=== PATIENT | male | born 1970 | race Caucasian/White ===

== ENCOUNTER → 2018-06-11 | Outpatient (CLI) | payer OTHER ==
[2018-06-11 15:30] LABS: BASOPHILS ABSOLUTE AUTO 0.04 K/mm3 (0.00-0.23); BASOPHILS PERCENT AUTO 0 % (0-2); EOSINOPHILS ABSOLUTE AUTO 0.18 K/mm3 (0.00-0.68); EOSINOPHILS PERCENT AUTO 2 % (0-6); Hematocrit 49.6 % (37.0-53.0); Hemoglobin 16.6 g/dL (13.5-17.5); IMMATURE GRAN ABSOLUTE AUTO 0.04 K/mm3 (0.00-0.10); IMMATURE GRAN PERCENT AUTO 0 % (0-1); LYMPHOCYTES ABSOLUTE AUTO 2.25 K/mm3 (0.84-5.20); LYMPHOCYTES PERCENT AUTO 23 % (21-46); MONOCYTES ABSOLUTE AUTO 0.84 K/mm3 (0.16-1.47); MONOCYTES PERCENT AUTO 9 % (4-13); Mean Corpuscular HGB 31.7 pg (26.0-34.0); Mean Corpuscular HGB Conc 33.5 g/dL (31.5-36.5); Mean Corpuscular Volume 95 fL (80-100); Mean Platelet Volume 9.4 fL (9.1-12.4); NEUTROPHILS ABSOLUTE AUTO 6.58 K/mm3 (1.96-9.15); NEUTROPHILS PERCENT AUTO 66 % (41-73); Platelet Count 319 K/mm3 (150-400); RDW Coefficient Variation 14.7 % (11.7-14.2); RDW Standard Deviation 50.6 fL (35.1-46.3); Red Blood Cell Count 5.24 M/mm3 (4.30-5.90); White Blood Cell Count 9.93 K/mm3 (4.00-11.30)
== END | disposition home or self-care (01) ==
LOC: LAB SHORT 15:23 → LAB EV 15:23
PROVIDERS: Physician Assistant Surgical
DX: M25.562 Pain in left knee (principal)
CPT/HCPCS: 84550; 85025

== ENCOUNTER 2018-08-15 18:25 | Emergency (ER) | payer OTHER ==
[~2018-08-15] VITALS: Ht 177.8 cm; Wt 104.3 kg
== END 2018-08-15 20:07 | disposition home or self-care (01) ==
LOC: ER 18:25
DX: S01.111A Laceration without foreign body of right eyelid and periocular area, initial encounter (principal); W22.8XXA Striking against or struck by other objects, initial encounter; F17.210 Nicotine dependence, cigarettes, uncomplicated
CPT/HCPCS: 12002; 90471; 90714; 99282-25

== ENCOUNTER 2019-06-24 18:14 | Inpatient (IN) | payer OTHER ==
[~2019-06-24] VITALS: Ht 177.8 cm; Wt 98.0 kg
[~2019-06-24 18:14] MED LIST: HYDR1TAB94 PO; ONDA4ODT SL
[2019-06-24 18:58] LABS: BASOPHILS ABSOLUTE AUTO 0.04 K/mm3 (0.00-0.23); BASOPHILS PERCENT AUTO 0 % (0-2); EOSINOPHILS ABSOLUTE AUTO 0.04 K/mm3 (0.00-0.68); EOSINOPHILS PERCENT AUTO 0 % (0-6); Hematocrit 49.6 % (37.0-53.0); Hemoglobin 16.6 g/dL (13.5-17.5); IMMATURE GRAN ABSOLUTE AUTO 0.07 K/mm3 (0.00-0.10); IMMATURE GRAN PERCENT AUTO 1 % (0-1); LYMPHOCYTES ABSOLUTE AUTO 1.51 K/mm3 (0.84-5.20); LYMPHOCYTES PERCENT AUTO 14 % (21-46); MONOCYTES ABSOLUTE AUTO 1.11 K/mm3 (0.16-1.47); MONOCYTES PERCENT AUTO 10 % (4-13); Mean Corpuscular HGB 31.5 pg (26.0-34.0); Mean Corpuscular HGB Conc 33.5 g/dL (31.5-36.5); Mean Corpuscular Volume 94 fL (80-100); Mean Platelet Volume 8.7 fL (9.1-12.4); NEUTROPHILS ABSOLUTE AUTO 8.08 K/mm3 (1.96-9.15); NEUTROPHILS PERCENT AUTO 75 % (41-73); Platelet Count 537 K/mm3 (150-400); Red Blood Cell Count 5.27 M/mm3 (4.30-5.90); White Blood Cell Count 10.85 K/mm3 (4.00-11.30)
[2019-06-24 19:30] LABS: Alanine Aminotransfer (ALT/SGP 26 U/L (12-78); Albumin/Globulin Ratio 0.6 (0.8-1.8); Alk Phos 103 U/L (50-136); Anion Gap 7 mmol/L (6-16); Aspartate Aminotrans (AST/SGOT 23 U/L (12-37); Bilirubin, Total 0.6 mg/dL (0.1-1.0); Blood Urea Nitrogen 8 mg/dL (8-24); Bun/Creatinine Ratio 12.3 (12.0-20.0); CO2, Blood 23 mmol/L (21-32); Calcium, Blood 8.8 mg/dL (8.5-10.1); Chloride, Blood 101 mmol/L (98-108); Creatinine, Blood 0.65 mg/dL (0.60-1.20); Globulin, Blood 4.7 g/dL (2.2-4.0); Glomerular Filtration Rate >60 (60-); Glucose, Blood 115 mg/dL (70-99); Potassium, Blood 3.9 mmol/L (3.5-5.5); Sodium, Blood 131 mmol/L (136-145); Total Protein, Blood 7.7 g/dL (6.4-8.2)
[2019-06-24] MEDS ORDERED: METF500 PO (19:44)
[2019-06-25 05:01] LABS: BASOPHILS ABSOLUTE AUTO 0.03 K/mm3 (0.00-0.23); BASOPHILS PERCENT AUTO 0 % (0-2); EOSINOPHILS ABSOLUTE AUTO 0.08 K/mm3 (0.00-0.68); EOSINOPHILS PERCENT AUTO 1 % (0-6); Hematocrit 47.9 % (37.0-53.0); Hemoglobin 15.6 g/dL (13.5-17.5); IMMATURE GRAN ABSOLUTE AUTO 0.04 K/mm3 (0.00-0.10); IMMATURE GRAN PERCENT AUTO 1 % (0-1); LYMPHOCYTES ABSOLUTE AUTO 1.49 K/mm3 (0.84-5.20); LYMPHOCYTES PERCENT AUTO 18 % (21-46); MONOCYTES ABSOLUTE AUTO 1.09 K/mm3 (0.16-1.47); MONOCYTES PERCENT AUTO 13 % (4-13); Mean Corpuscular HGB 30.8 pg (26.0-34.0); Mean Corpuscular HGB Conc 32.6 g/dL (31.5-36.5); Mean Corpuscular Volume 95 fL (80-100); Mean Platelet Volume 8.7 fL (9.1-12.4); NEUTROPHILS ABSOLUTE AUTO 5.78 K/mm3 (1.96-9.15); NEUTROPHILS PERCENT AUTO 68 % (41-73); Platelet Count 495 K/mm3 (150-400); RDW Coefficient Variation 13.2 % (11.7-14.2); Red Blood Cell Count 5.06 M/mm3 (4.30-5.90); White Blood Cell Count 8.51 K/mm3 (4.00-11.30)
[2019-06-26 04:40] LABS: BASOPHILS ABSOLUTE AUTO 0.04 K/mm3 (0.00-0.23); BASOPHILS PERCENT AUTO 1 % (0-2); EOSINOPHILS ABSOLUTE AUTO 0.15 K/mm3 (0.00-0.68); EOSINOPHILS PERCENT AUTO 2 % (0-6); Hematocrit 44.1 % (37.0-53.0); Hemoglobin 14.5 g/dL (13.5-17.5); IMMATURE GRAN ABSOLUTE AUTO 0.03 K/mm3 (0.00-0.10); IMMATURE GRAN PERCENT AUTO 0 % (0-1); LYMPHOCYTES ABSOLUTE AUTO 1.28 K/mm3 (0.84-5.20); LYMPHOCYTES PERCENT AUTO 16 % (21-46); MONOCYTES PERCENT AUTO 10 % (4-13); Mean Corpuscular HGB 31.4 pg (26.0-34.0); Mean Corpuscular HGB Conc 32.9 g/dL (31.5-36.5); Mean Corpuscular Volume 96 fL (80-100); Mean Platelet Volume 8.5 fL (9.1-12.4); NEUTROPHILS ABSOLUTE AUTO 5.54 K/mm3 (1.96-9.15); NEUTROPHILS PERCENT AUTO 71 % (41-73); Platelet Count 415 K/mm3 (150-400); RDW Coefficient Variation 13.1 % (11.7-14.2); RDW Standard Deviation 46.2 fL (35.1-46.3); Red Blood Cell Count 4.62 M/mm3 (4.30-5.90); White Blood Cell Count 7.84 K/mm3 (4.00-11.30)
[2019-06-26 04:56] LABS: Albumin, Blood 2.3 g/dL (3.4-5.0); Anion Gap 5 mmol/L (6-16); Blood Urea Nitrogen 4 mg/dL (8-24); Bun/Creatinine Ratio 6.6 (12.0-20.0); CO2, Blood 25 mmol/L (21-32); Calcium, Blood 7.8 mg/dL (8.5-10.1); Chloride, Blood 107 mmol/L (98-108); Creatinine, Blood 0.61 mg/dL (0.60-1.20); Glomerular Filtration Rate >60 (60-); Glucose, Blood 105 mg/dL (70-99); Phosphorus, Blood 2.6 mg/dL (2.5-4.9); Potassium, Blood 3.8 mmol/L (3.5-5.5); Sodium, Blood 137 mmol/L (136-145)
[2019-06-27 04:52] LABS: BASOPHILS ABSOLUTE AUTO 0.05 K/mm3 (0.00-0.23); BASOPHILS PERCENT AUTO 1 % (0-2); EOSINOPHILS ABSOLUTE AUTO 0.15 K/mm3 (0.00-0.68); EOSINOPHILS PERCENT AUTO 2 % (0-6); Hematocrit 46.6 % (37.0-53.0); Hemoglobin 15.1 g/dL (13.5-17.5); IMMATURE GRAN ABSOLUTE AUTO 0.05 K/mm3 (0.00-0.10); IMMATURE GRAN PERCENT AUTO 1 % (0-1); LYMPHOCYTES ABSOLUTE AUTO 1.94 K/mm3 (0.84-5.20); LYMPHOCYTES PERCENT AUTO 20 % (21-46); MONOCYTES ABSOLUTE AUTO 0.79 K/mm3 (0.16-1.47); MONOCYTES PERCENT AUTO 8 % (4-13); Mean Corpuscular HGB 31.1 pg (26.0-34.0); Mean Corpuscular HGB Conc 32.4 g/dL (31.5-36.5); Mean Corpuscular Volume 96 fL (80-100); Mean Platelet Volume 8.6 fL (9.1-12.4); NEUTROPHILS ABSOLUTE AUTO 6.99 K/mm3 (1.96-9.15); NEUTROPHILS PERCENT AUTO 70 % (41-73); Platelet Count 490 K/mm3 (150-400); RDW Coefficient Variation 12.9 % (11.7-14.2); RDW Standard Deviation 45.9 fL (35.1-46.3); Red Blood Cell Count 4.86 M/mm3 (4.30-5.90); White Blood Cell Count 9.97 K/mm3 (4.00-11.30)
[2019-06-27 05:16] LABS: Albumin, Blood 2.6 g/dL (3.4-5.0); Anion Gap 6 mmol/L (6-16); Blood Urea Nitrogen 3 mg/dL (8-24); Bun/Creatinine Ratio 4.4 (12.0-20.0); CO2, Blood 28 mmol/L (21-32); Calcium, Blood 8.7 mg/dL (8.5-10.1); Chloride, Blood 102 mmol/L (98-108); Creatinine, Blood 0.68 mg/dL (0.60-1.20); Glomerular Filtration Rate >60 (60-); Glucose, Blood 93 mg/dL (70-99); Phosphorus, Blood 3.1 mg/dL (2.5-4.9); Potassium, Blood 3.8 mmol/L (3.5-5.5); Sodium, Blood 136 mmol/L (136-145)
[2019-06-27] MEDS ORDERED: ACET325 PO (14:20)
[2019-06-27] MEDS ORDERED: CIPR750 PO (14:21)
[2019-06-27] MEDS ORDERED: NICO21TP TOP (14:21)
[2019-06-27] MEDS ORDERED: METR500 PO (14:21)
[2019-06-27] MEDS ORDERED: Florastor250 MG PO (14:21)
== END 2019-06-27 14:32 | disposition home or self-care (01) | DRG 392 ==
LOC: ER 18:14 → MEDS 21:48
PROVIDERS: Family Medicine; Nurse Practitioner; ADMIT Internal Medicine
DX: K52.9 Noninfective gastroenteritis and colitis, unspecified (principal); E87.1 Hypo-osmolality and hyponatremia; K63.0 Abscess of intestine; K56.7 Ileus, unspecified; K21.9 Gastro-esophageal reflux disease without esophagitis; E11.9 Type 2 diabetes mellitus without complications; F17.210 Nicotine dependence, cigarettes, uncomplicated; Z79.84 Long term (current) use of oral hypoglycemic drugs; D47.3 Essential (hemorrhagic) thrombocythemia; K76.0 Fatty (change of) liver, not elsewhere classified; E66.01 Morbid (severe) obesity due to excess calories; Z68.31 Body mass index [BMI] 31.0-31.9, adult
CPT/HCPCS: 36415; 74177; 80053; 80069; 82947; 83690; 85025; 96361; 96365-59; 99285-25; A9270-GY; J0744; J1170; J2405; J7030; J7042; Q9967

== ENCOUNTER 2019-07-09 15:41 | Day surgery (SDC) | payer OTHER ==
[~2019-07-09 15:41] MED LIST changes: +ACET325 PO; +CIPR750 PO; +Florastor250 MG PO; +METF500 PO; +METR500 PO; +NICO21TP TOP
[2019-07-09] MEDS ORDERED: PHILLIPS500 MG PO (17:10)
[2019-07-09] MEDS ORDERED: ERTAPENEM1 GM IV (17:11)
== END 2019-07-09 17:38 | disposition home or self-care (01) ==
LOC: ATC 15:41
DX: K57.92 Diverticulitis of intestine, part unspecified, without perforation or abscess without bleeding (principal); F17.210 Nicotine dependence, cigarettes, uncomplicated; Z88.6 Allergy status to analgesic agent; Z88.0 Allergy status to penicillin; E11.9 Type 2 diabetes mellitus without complications; Z79.84 Long term (current) use of oral hypoglycemic drugs; E78.5 Hyperlipidemia, unspecified; E66.01 Morbid (severe) obesity due to excess calories; Z68.29 Body mass index [BMI] 29.0-29.9, adult
CPT/HCPCS: J1335

== ENCOUNTER 2019-07-10 00:10 | Day surgery (SDC) | payer OTHER ==
[~2019-07-10 00:10] MED LIST changes: +ERTAPENEM1 GM IV; +PHILLIPS500 MG PO
== END 2019-07-10 14:21 | disposition home or self-care (01) ==
LOC: ATC 00:10
DX: K57.92 Diverticulitis of intestine, part unspecified, without perforation or abscess without bleeding (principal); E11.9 Type 2 diabetes mellitus without complications; K21.9 Gastro-esophageal reflux disease without esophagitis; Z79.82 Long term (current) use of aspirin; Z79.899 Other long term (current) drug therapy; Z88.0 Allergy status to penicillin; F17.210 Nicotine dependence, cigarettes, uncomplicated; Z79.84 Long term (current) use of oral hypoglycemic drugs
CPT/HCPCS: J1335

== ENCOUNTER 2019-07-12 00:08 | Day surgery (SDC) | payer OTHER | END 2019-07-12 15:45 | disposition home or self-care (01) | LOC: ATC 00:08 | DX: K57.92 Diverticulitis of intestine, part unspecified, without perforation or abscess without bleeding (principal); E11.9 Type 2 diabetes mellitus without complications; F17.210 Nicotine dependence, cigarettes, uncomplicated; Z88.0 Allergy status to penicillin; Z79.84 Long term (current) use of oral hypoglycemic drugs; Z90.49 Acquired absence of other specified parts of digestive tract | CPT/HCPCS: J1335 ==

== ENCOUNTER 2019-07-15 00:02 | Day surgery (SDC) | payer OTHER | END 2019-07-15 15:16 | disposition home or self-care (01) | LOC: ATC 00:02 | DX: K57.92 Diverticulitis of intestine, part unspecified, without perforation or abscess without bleeding (principal); E11.9 Type 2 diabetes mellitus without complications; K21.9 Gastro-esophageal reflux disease without esophagitis; Z79.84 Long term (current) use of oral hypoglycemic drugs; Z79.899 Other long term (current) drug therapy; Z88.0 Allergy status to penicillin; F17.210 Nicotine dependence, cigarettes, uncomplicated | CPT/HCPCS: 96374; J1335 ==

== ENCOUNTER 2019-07-19 00:20 | Day surgery (SDC) | payer OTHER | END 2019-07-19 15:19 | disposition home or self-care (01) | LOC: ATC 00:20 | DX: K57.92 Diverticulitis of intestine, part unspecified, without perforation or abscess without bleeding (principal); E11.9 Type 2 diabetes mellitus without complications; K21.9 Gastro-esophageal reflux disease without esophagitis; F17.210 Nicotine dependence, cigarettes, uncomplicated; Z88.0 Allergy status to penicillin; Z88.6 Allergy status to analgesic agent; Z79.84 Long term (current) use of oral hypoglycemic drugs; Z79.899 Other long term (current) drug therapy | CPT/HCPCS: J1335 ==

== ENCOUNTER 2019-07-21 00:07 | Day surgery (SDC) | payer OTHER | END 2019-07-21 15:25 | disposition home or self-care (01) | LOC: ATC 00:07 | DX: K57.20 Diverticulitis of large intestine with perforation and abscess without bleeding (principal); E11.9 Type 2 diabetes mellitus without complications; F17.210 Nicotine dependence, cigarettes, uncomplicated; Z79.84 Long term (current) use of oral hypoglycemic drugs | CPT/HCPCS: 96365; J1335 ==

== ENCOUNTER 2019-07-22 00:10 | Day surgery (SDC) | payer OTHER | END 2019-07-22 15:32 | disposition home or self-care (01) | LOC: ATC 00:10 | DX: K57.20 Diverticulitis of large intestine with perforation and abscess without bleeding (principal); E11.9 Type 2 diabetes mellitus without complications; Z79.84 Long term (current) use of oral hypoglycemic drugs; Z88.0 Allergy status to penicillin | CPT/HCPCS: 82565; 96365; J1335 ==

== ENCOUNTER 2019-08-04 06:50 | Inpatient (IN) | payer OTHER ==
[~2019-08-04] VITALS: Ht 177.8 cm; Wt 91.5 kg
[~2019-08-04 06:50] MED LIST changes: +[UNRECOGNIZED DRUG - OTHER] PO
[2019-08-04] MEDS ORDERED: CIPR500 PO (07:30)
[2019-08-04] MEDS ORDERED: METR500 PO (07:30)
--- NOTE | 2019-08-04 07:44 | NUR ---
PT ADMITTED TO [facility]. AGREES WITH PLANNED SURGERY. LUNG SOUNDS CLEAR.
[2019-08-04 08:07] LABS: BASOPHILS ABSOLUTE AUTO 0.05 K/mm3 (0.00-0.23); BASOPHILS PERCENT AUTO 0 % (0-2); EOSINOPHILS ABSOLUTE AUTO 0.14 K/mm3 (0.00-0.68); EOSINOPHILS PERCENT AUTO 1 % (0-6); Hematocrit 45.7 % (37.0-53.0); Hemoglobin 15.5 g/dL (13.5-17.5); IMMATURE GRAN ABSOLUTE AUTO 0.05 K/mm3 (0.00-0.10); IMMATURE GRAN PERCENT AUTO 0 % (0-1); LYMPHOCYTES ABSOLUTE AUTO 2.14 K/mm3 (0.84-5.20); LYMPHOCYTES PERCENT AUTO 19 % (21-46); MONOCYTES ABSOLUTE AUTO 1.08 K/mm3 (0.16-1.47); MONOCYTES PERCENT AUTO 10 % (4-13); Mean Corpuscular HGB 31.4 pg (26.0-34.0); Mean Corpuscular HGB Conc 33.9 g/dL (31.5-36.5); Mean Corpuscular Volume 93 fL (80-100); Mean Platelet Volume 8.9 fL (9.1-12.4); NEUTROPHILS ABSOLUTE AUTO 7.66 K/mm3 (1.96-9.15); NEUTROPHILS PERCENT AUTO 69 % (41-73); Platelet Count 415 K/mm3 (150-400); RDW Coefficient Variation 14.4 % (11.7-14.2); RDW Standard Deviation 48.2 fL (35.1-46.3); Red Blood Cell Count 4.94 M/mm3 (4.30-5.90); White Blood Cell Count 11.12 K/mm3 (4.00-11.30)
--- NOTE | 2019-08-04 08:43 | NUR ---
UP TO BATHROOM AT THIS TIME
--- NOTE | 2019-08-04 19:52 | NUR ---
POST OP: REPORT RECIEVED FROM TONA GERMANU RN. PT TO UNIT AT ABOUT 1640. UPON ASSESSMENT PT VSS, A/O. EPIDURAL ASSESSMENT WNL, SEE CHARTING. SMALL AMT BROWN LIQ STOOL IN OSTOMY BAG. BAG EMPTIED. SITE OOZING OF BLOOD AT SURGICAL SITE, REINFORCED WITH GUAZE. NGT HOOKED TO LIS, SMALL AMT OF OUTPUT, PT DENIES N/V. GLORIA DRAINING. PT REPORTS EPIDURAL MANAGING PAIN WELL, PAIN IS 0/10. WILL CTM PT STATUS. NO ACUTE CHANGE SINCE RECEIVED PT POST OP. REPORT GIVEN TO CHANDLER VICK RN
--- NOTE | 2019-08-04 22:36 | NUR ---
PT STS ABLE TO MOVE R LEG, ABLE TO WIGGLE BILATERAL FEET, UNABLE TO MOVE LEFT LEG, BILATERAL LOWER EXT ARE NUMB.
--- NOTE | 2019-08-04 23:07 | NUR ---
PT REP 0/10 W/EPIDURAL. DRESSING WNL, SMALL AREA OF DRY SS DRNG NOTED ON PAD BEHIND PT'S BACK (UNCHANGED PER DAY RN). LEVEL OF SENSATION T9-L4, PT REP NUMBNESS TO BLE, W/MORE NUMBNESS TO LLE. PT WIGGLES TOES, CAN LIFT RLE, IS UNABLE TO LIFT LLE. RESP E/U, SATS >90% ON RA.
--- NOTE | 2019-08-05 02:08 | NUR ---
PATIENT HAS FULL SENSATION ON RIGHT SIDE BODY DOWN TO RIGHT TOE, ABLE TO MOVE RIGHT LEG. PATIENT FEELS NUMB ON LEFT SIDE (UMBILICUS/MID ABD TO LEFT TOE) T10-L4. UNABLE TO MOVE LEFT LEG. ABLE TO WIGGLE AND MOVE LEFT FOOT, BUT WEAK.
--- NOTE | 2019-08-05 03:04 | NUR ---
RIGHT SIDE NOT NUMB, T10-L4 LEFT SIDE IS STILL NUMB. NO CHANGES IN AN HOUR.
--- NOTE | 2019-08-05 04:05 | NUR ---
PATIENT IS ASLEEP WHEN I CAME INTO HIS ROOM. THEN WIDE AWAKE WHEN VS WAS TAKEN. T10-L3 LEFT SIDE STILL NUMB. HE STATES THAT HE CAN FEEL SENSATION ON LEFT FOOT, ABLE TO MOVE LEFT LOWER LEG. PATIENT STILL HAS FULL SENSATION ON RIGHT SIDE BODY.
[2019-08-05 04:37] LABS: BASOPHILS ABSOLUTE AUTO 0.03 K/mm3 (0.00-0.23); BASOPHILS PERCENT AUTO 0 % (0-2); EOSINOPHILS ABSOLUTE AUTO 0.07 K/mm3 (0.00-0.68); EOSINOPHILS PERCENT AUTO 1 % (0-6); Hematocrit 42.9 % (37.0-53.0); Hemoglobin 14.1 g/dL (13.5-17.5); IMMATURE GRAN ABSOLUTE AUTO 0.07 K/mm3 (0.00-0.10); IMMATURE GRAN PERCENT AUTO 1 % (0-1); LYMPHOCYTES ABSOLUTE AUTO 1.71 K/mm3 (0.84-5.20); LYMPHOCYTES PERCENT AUTO 12 % (21-46); MONOCYTES ABSOLUTE AUTO 1.11 K/mm3 (0.16-1.47); MONOCYTES PERCENT AUTO 8 % (4-13); Mean Corpuscular HGB 30.9 pg (26.0-34.0); Mean Corpuscular HGB Conc 32.9 g/dL (31.5-36.5); Mean Corpuscular Volume 94 fL (80-100); Mean Platelet Volume 9.3 fL (9.1-12.4); NEUTROPHILS PERCENT AUTO 80 % (41-73); Platelet Count 375 K/mm3 (150-400); RDW Coefficient Variation 14.6 % (11.7-14.2); RDW Standard Deviation 50.2 fL (35.1-46.3); Red Blood Cell Count 4.56 M/mm3 (4.30-5.90); White Blood Cell Count 14.69 K/mm3 (4.00-11.30)
[2019-08-05 04:54] LABS: Anion Gap 7 mmol/L (6-16); Blood Urea Nitrogen 6 mg/dL (8-24); Bun/Creatinine Ratio 9.9 (12.0-20.0); CO2, Blood 24 mmol/L (21-32); Calcium, Blood 7.8 mg/dL (8.5-10.1); Chloride, Blood 106 mmol/L (98-108); Glomerular Filtration Rate >60 (60-); Glucose, Blood 116 mg/dL (70-99); Potassium, Blood 3.7 mmol/L (3.5-5.5); Sodium, Blood 137 mmol/L (136-145)
--- NOTE | 2019-08-05 05:58 | NUR ---
PT STS HE FEELS SENSATION ON T11-L3. PT STILL HAS FULL SENSATION ON RIGHT SIDE BODY. PATIENT IS ABLE TO MOVE LEFT LOWER LEG AND RIGHT SIDE BODY.
--- NOTE | 2019-08-05 07:16 | NUR ---
POD 1 S/P COLECTOMY+OSTOMY. PT VSS T/O NIGHT. DISTAL END OF INCISION DRNG SMALL SMT LIGHT SS DRNG. BT HYPO, NGT PUTTING OUT SCANT BILE, PT HAD NO C/O N/V. OSTOMY PUTTING OUT LIQ BROWN STOOL+FLATUS. PT REP PAIN WELL MGD W/EPIDURAL. EPIDURAL SITE WNL. PT REP LESS NUMBNESS THIS AM, REP FULL SENSATION TO RIGHT SIDE, W/LACK OF SENSATION FROM T10-L3. PT IS ABLE TO MOVE LEGS THIS AM. GLORIA DRNG DARK DEANDRA URINE. PT USING CALL LIGHT FOR ASSISTANCE, WILL CONT TO MONITOR UNTIL REP GIVEN TO ONCOMING RN.
--- NOTE | 2019-08-05 17:48 | NUR ---
SUMMARY NO ACUTE CHANGES T/O SHIFT. PAIN WELL CONTROLLED W/EPIDURAL. TOLERATED CLEAR LIQUIDS AND ADVANCED TO FULL LIQUIDS FOR DINNER. OSTOMY PUTTING OUT LARGE AMOUNTS BROWN LIQUID STOOL. SAT UP IN CHAIR FOR APPROXIMATELY 1 HOUR. CALL LIGHT AND EPIDURAL HANDLE WITHIN REACH.
--- NOTE | 2019-08-05 23:40 | NUR ---
PATIENT FEELS FULL SENSATION IN BODY EXCEPTION TO NUMBNESS ON LLQ ABD REGION - BELOW LOWER LEFT KNEE. PT HAS WEAKNESS ON LLE.
--- NOTE | 2019-08-05 23:45 | NUR ---
PT STS LLQ ABD REGION TO BELOW LEFT KNEE FEELS NUMB. PT STS LLE IS WEAK.
--- NOTE | 2019-08-06 05:27 | NUR ---
PATIENT STS FEELS NUMB LLQ ABD REGION TO UPPER KNEE. PT CAN FEEL SENSATION ON HIS LEFT KNEE.
--- NOTE | 2019-08-06 06:39 | NUR ---
POD 2 FROM COLECTOMY/OSTOMY. PT REPORTS NUMBNESS ON LLQ ABD REGION TO LEFT UPPER KNEE. PT MINIMAL ASSIST, AMBULATE BED TO CHAIR LAST NIGHT. 3/10 PAIN LEVEL TOLERABLE WITH EPIDURAL. PAIN WORSE WHEN COUGHING, EDUCATE ABOUT SPLINT COUGHING. PT HAS COARSE AND DIMINISHED LUNG SOUND ON BILATERAL LOWER LOBE. PT COMFORTBLE IN BED LAST NIGHT BUT WENT ASLEEP AT 0300. I CAME IN AT 0500 TO GET A SET OF VSS - WNL, REMAIN HYPOTENSIVE BUT ASYMPTOMATIC. INCISION ON MID ABD DRAINING SS, APPLIED GAUZE AND BANDAID FOR DRESSING. APPLIED BELT TO STABILIZE OSTOMY BAG IN PLACED. PT IS ON FULL LIQUID DIET TOLERATED. DENIES N/V. NG TUBE WAS TAKEN OUT YESTERDAY.
--- NOTE | 2019-08-06 07:30 | NUR ---
pt awake laying in bed stoma pink and moist stool in bag liquid green pt stated no nausea yamel full liquid diet but stated he gets full quick and takes his time otherwise min pain lower rqabd only occ cough cl spututm ls dim to bases bilat
--- NOTE | 2019-08-06 12:52 | NUR ---
NEW ORDER FOR FLAGYL PT STATED AT HOME HE HAD BEEN TAKING FLAGYL AND LEVAQUIN PO DR FITZPATRICK ORDERED IV WHILE PT IS HERE
--- NOTE | 2019-08-06 17:45 | NUR ---
PT STATED THAT HE STILL WANTS TO STICK WITH A FULL LIQ DIET STILL REESE DIET NO NAUSEA OR ABD PAIN
--- NOTE | 2019-08-07 03:24 | NUR ---
ASSUMED CARE OF PT. PT SLEEPING IN BED, RESP E/U, NO DISTRESS NOTED. WILL MONITOR AND TX PER ORDERS.
--- NOTE | 2019-08-07 06:17 | NUR ---
POD 3 S/P COLECTOMY+OSTOMY. PT VSS, INCISION DRY, ROHIT INTACT, HILARY W/MID PORTION COVERED BY APPLIANCE. OSTOMY BELT IN PLACE. PT REESE FULL LIQ PO, NO N/V, OSTOMY PUTTING OUT DARK GREEN LIQ STOOL+GAS. GLORIA PATANT, URINE FINANCIAL COUNSELOR YELLOW. PT REP PAIN 3/10, W/NO CHANGES IN DERMATOME SENSATION (REMAINS NUMB FROM LEFT HIP TO KNEE). PLAN TO D/C EPIDURAL TODAY. PT USING CALL LIGHT FOR ASSISTANCE, WILL CONT TO MONITOR UNTIL REP GIVEN TO ONCOMING RN.
--- NOTE | 2019-08-07 18:00 | NUR ---
SHIFT SUMMARY PT DOING WELL THIS SHIFT. EPIDURAL REMOVED THIS MORNING. PT RECEIVING 1-2 NORCO FOR PAIN PRN. GLORIA REMOVED THIS AFTERNOON AND PT VOIDING SPONTANEOUSLY. PT INDEP AMBULATING IN HALLWAYS. OSTOMY WITH GREEN/BROWN LIQ STOOL + GAS. CONT OSTOMY EDUCATION WITH PT. REESE REG DIET. PT WANTING TO SHOWER AFTER DINNER. PLANNING TO DO WOUND CARE AND OSTOMY CHANGE PER DR. CLARK ORDERS--WILL PASS ALONG TO NOC RN IF UNABLE TO COMPLETE BY END OF SHIFT. PT USES CALL LIGHT APPROPRIATELY.
--- NOTE | 2019-08-08 01:32 | NUR ---
PATIENT SHOWERED. OSTOMY REMOVED, MIDLINE INCISION AND STOMA AREA CLEANED. AREA DIRECTLY AROUND STOMA IS RED. MIDLINE INCISION IS APPROXIMATED AT THE SUPERIOR EDGE. 2CM BLISTER SEEN AT THE RIGHT SIDE OF THE SUTURE LINE, THAT BURST WHILE CLEANING THE INCISION. AREA DRIED. 13 ROHIT OVER THE INCISION LINE. RONALDO DRESSING PLACED OVER SURGICAL SITE. COMPRESSED, WITH NO DRAINAGE. NEW 4INCH WAFER OVER STOMA, WITH PARTIAL COVERING OF THE MIDLINE DRESSING/RONALDO DRESSING. PT TOLERATED THIS PROCEDURE WELL.
--- NOTE | 2019-08-08 05:08 | NUR ---
PATIENT HAS BEEN INDEPENDENT IN ROOM AND IN THE HALLWAYS FOR SEVERAL WALKS TONIGHT. HE WA ABLE TO DEMONSTRATE DRAINING HIS CHOLOSTOMY BAG AND DID VERY WELL WITH HIS TECHNIQUE. NO ACUTE CHANGES THIS SHIFT.
--- NOTE | 2019-08-08 15:58 | NUR ---
SHIFT SUMMARY NO ACUTE CHANGES. PT CONT TO DO WELL. 2 NORCO PRN FOR PAIN. RONALDO DRESSING TO ABD REMAINS CDI. PT INDEP EMPTYING OWN OSTOMY. GREEN/BROWN LIQ + GAS PRESENT IN OSTOMY. AMBULATING HALLWAYS INDEP. REESE REG DIET. PT USES CALL LIGHT APPROPRIATELY. PLANNING TO DISCHARGE HOME TOMORROW.
--- NOTE | 2019-08-09 04:58 | NUR ---
PATIENT SLEPT ALL NIGHT. INDEPENDENT IN ROOM AND HALLWAYS. EXCITED TO GO HOME TODAY. PATIENT PERFORMING ALL TASKS RELATED TO HIS CHOLOSTOMY TO A HIGH LEVEL OF PROFICIENCY. NO ACUTE CHANGES.
[2019-08-09] MEDS ORDERED: HYDR1TAB94 PO (13:26)
--- NOTE | 2019-08-09 14:48 | NUR ---
discharged CHANGED RONALDO DRESSING DUE TO LEAKAGE FROM OSTOMY. CHANGED OSTOMY APPLIANCE W/PT; PT ENGAGED IN LEARNING TO CHANGE. REVIEWED DC INSTRUCTIONS; PT VERBALIZED UNDERSTANDING. DC'D IV, CATHETER INTACT. PROVIDED SUPPLIES FOR PT. PT LEFT UNIT W/SUPPLIES, DC INSTRUCTIONS/PRESCRIPTIONS AND POSSESSIONS IN HAND BY AMBULATION TO RIDE AWAITING OUTSIDE.
== END 2019-08-09 14:47 | disposition home or self-care (01) | DRG 331 ==
LOC: ORSCMMR 06:50 → ORD 08:30 → ORSCMMR 08:30 → SURS 15:50
PROVIDERS: Anesthesiology; ADMIT Surgery
PROC: 0D1N0Z4 Bypass Sigmoid Colon to Cutaneous, Open Approach (ICD-10-PCS; principal; 2019-08-04 08:30)
DX: K57.20 Diverticulitis of large intestine with perforation and abscess without bleeding (principal); F17.210 Nicotine dependence, cigarettes, uncomplicated; E66.01 Morbid (severe) obesity due to excess calories; Z68.29 Body mass index [BMI] 29.0-29.9, adult
CPT/HCPCS: 36415; 80048; 82947; 85025; 86850; 86900; 86901; 88307; A9270-GY; J1100; J1650; J1956; J2250; J2370; J2405; J2704; J3010; J7120

== ENCOUNTER → 2019-12-15 | Outpatient (CLI) | payer OTHER ==
[~2019-12-15] MED LIST changes: +CIPR500 PO
== END | disposition home or self-care (01) ==
LOC: LAB SHORT 10:49 → LAB SRC 10:49 → LAB FUT 12-13 09:00
DX: E11.9 Type 2 diabetes mellitus without complications (principal)
CPT/HCPCS: 82043

== ENCOUNTER 2020-06-28 06:07 | Inpatient (IN) | payer OTHER ==
[~2020-06-28] VITALS: Ht 177.8 cm; Wt 91.4 kg
[~2020-06-28 06:07] MED LIST changes: +ATOR40TA PO; +Crestor20 MG
[2020-06-28 08:28] LABS: BASOPHILS ABSOLUTE AUTO 0.06 K/mm3 (0.00-0.23); BASOPHILS PERCENT AUTO 1 % (0-2); EOSINOPHILS ABSOLUTE AUTO 0.47 K/mm3 (0.00-0.68); EOSINOPHILS PERCENT AUTO 7 % (0-6); Hematocrit 42.1 % (37.0-53.0); Hemoglobin 13.8 g/dL (13.5-17.5); IMMATURE GRAN ABSOLUTE AUTO 0.02 K/mm3 (0.00-0.10); IMMATURE GRAN PERCENT AUTO 0 % (0-1); LYMPHOCYTES ABSOLUTE AUTO 2.04 K/mm3 (0.84-5.20); LYMPHOCYTES PERCENT AUTO 31 % (21-46); MONOCYTES ABSOLUTE AUTO 0.52 K/mm3 (0.16-1.47); MONOCYTES PERCENT AUTO 8 % (4-13); Mean Corpuscular HGB 31.4 pg (26.0-34.0); Mean Corpuscular HGB Conc 32.8 g/dL (31.5-36.5); Mean Corpuscular Volume 96 fL (80-100); Mean Platelet Volume 9.2 fL (9.1-12.4); NEUTROPHILS PERCENT AUTO 53 % (41-73); Platelet Count 273 K/mm3 (150-400); RDW Coefficient Variation 13.5 % (11.7-14.2); RDW Standard Deviation 47.8 fL (35.1-46.3); Red Blood Cell Count 4.39 M/mm3 (4.30-5.90); White Blood Cell Count 6.61 K/mm3 (4.00-11.30)
--- NOTE | 2020-06-28 09:50 | NUR ---
06/28/20 0950 Joby Campbell PATIENT ARRIVED TO OR WITH CHG DRESSING ON MID BACK. PATIENT WAS NOTED TO HAVE ABRASION ON SKIN IN APPROXIMATE SITE OF EPIDURAL PLACEMENT.
--- NOTE | 2020-06-28 17:50 | NUR ---
SHIFT SUMMARY PT A&OX4, VSS, S/P COLOSTOMY CLOSURE, RONALDO DRY/INTACT, XAVIER DRAIN W/ 120 MLS RED LIQUID OUT. GLORIA PATENT & DRAINING YELLOW URINE, STAT LOCK ON, OFF FLOOR. IV LAC, LR @ 100 MLS/HR. WILL REPORT TO ONCOMING NOC RN.
--- NOTE | 2020-06-29 05:04 | NUR ---
SHIFT SUMMARY POD1 COLOSTOMY REVERSAL WITH DR. CARDOZA. AOX4. VSS. TOLERATING ICE WATER T/O SHIFT. PLAN TO ADVANCE TO CLEAR LIQ DIET FOOD THIS MORNING. DENIES NAUSEA AND VOMITING. REPORTS PAIN LEVEL OF 2-3/10. PAIN MANAGED WITH NORCO 5/325 Q4. GLORIA CATH,GRAVITY/OFF FLOOR DRAINING WELL. URINE OUTPUT OFF 2100ML. LR INFUSING AT 100 ML. XAVIER DRAIN OUTPUT OF 125 ML WITH SEROSANG DRAINAGE. CALL LIGHT WITHIN REACH. WILL PROVIDE REPORT TO ONCOMING AM NURSE.
[2020-06-29 05:48] LABS: BASOPHILS ABSOLUTE AUTO 0.02 K/mm3 (0.00-0.23); BASOPHILS PERCENT AUTO 0 % (0-2); EOSINOPHILS PERCENT AUTO 0 % (0-6); Hemoglobin 12.5 g/dL (13.5-17.5); IMMATURE GRAN ABSOLUTE AUTO 0.04 K/mm3 (0.00-0.10); IMMATURE GRAN PERCENT AUTO 0 % (0-1); LYMPHOCYTES ABSOLUTE AUTO 1.24 K/mm3 (0.84-5.20); LYMPHOCYTES PERCENT AUTO 11 % (21-46); MONOCYTES ABSOLUTE AUTO 1.01 K/mm3 (0.16-1.47); MONOCYTES PERCENT AUTO 9 % (4-13); Mean Corpuscular HGB 31.2 pg (26.0-34.0); Mean Corpuscular HGB Conc 32.1 g/dL (31.5-36.5); Mean Corpuscular Volume 97 fL (80-100); Mean Platelet Volume 9.8 fL (9.1-12.4); NEUTROPHILS PERCENT AUTO 80 % (41-73); Platelet Count 251 K/mm3 (150-400); RDW Coefficient Variation 13.6 % (11.7-14.2); RDW Standard Deviation 48.8 fL (35.1-46.3); Red Blood Cell Count 4.01 M/mm3 (4.30-5.90); White Blood Cell Count 11.81 K/mm3 (4.00-11.30)
[2020-06-29 06:24] LABS: Anion Gap 5 mmol/L (6-16); Blood Urea Nitrogen 8 mg/dL (8-24); Bun/Creatinine Ratio 10.1 (12.0-20.0); CO2, Blood 26 mmol/L (21-32); Calcium, Blood 7.3 mg/dL (8.5-10.1); Chloride, Blood 109 mmol/L (98-108); Creatinine, Blood 0.79 mg/dL (0.60-1.20); Glomerular Filtration Rate >60 (60-); Glucose, Blood 115 mg/dL (70-99); Sodium, Blood 140 mmol/L (136-145)
--- NOTE | 2020-06-29 15:44 | NUR ---
SHIFT SUMMARY PT A&OX4, VSS, POD1 COLOSTOMY CLOSURE/RONALDO WNL/XAVIER. PAIN MANAGED WITH 5 MG NORCO. REESE PO CL DIET, DENIES N&V. VOIDING WELL. AMBULATING INDEPENDENTLY TO BRP, HALLWAY, UP TO CHAIR. WILL REPORT TO ONCOMING CHANDLER RN.
--- NOTE | 2020-06-29 19:07 | NUR ---
RECEIVED REPORT AND ASSUMED CARE OF PT. PT RESTING QUIETLY IN BED, DENIES ANY NEEDS AT THIS TIME.
--- NOTE | 2020-06-30 02:37 | NUR ---
SHIFT SUMMARY: PAO IS A&OX4. VSS, NO ACUTE EVENTS OVERNIGHT. HE REPORTS THAT BEGINNING AT APPROX 2230, HE HAS BEEN HAVING A BOWEL MOVEMENT EVERY HOUR. HE STATES THAT THE STOOL HAS A SMALL AMOUNT OF BLOOD IN IT. HE IS TOLERATING CLEAR LIQUIDS WELL, DENIES ANY NAUSEA, INDEPENDENT IN THE ROOM. XAVIER DRAINING SS FLUID, RONALDO TO MIDLINE, ABDOMINAL BINDER FOR COMFORT. HE DENIES ANY DIFFICULTY URINATING. IV PATENT, SALINE LOCKED. HE REPORTS ADEQUATE PAIN CONTROL WITH 5 MG OF NORCO. HE IS LYING IN BED WITH HIS CALL LIGHT IN REACH. WILL REPORT TO DAY SHIFT RN.
--- NOTE | 2020-06-30 07:47 | NUR ---
pt reports min pain to abd 2/10 passing gas and has had some bm mixed with stool and blood pt has mod amt of drainage to dressing pt having daily dressing changes with dr avelar no nausea
--- NOTE | 2020-06-30 09:15 | NUR ---
pt yamel cl breakfast also amb in hallway had another bm med sized no blood brown green only
--- NOTE | 2020-06-30 11:06 | NUR ---
dr avelar by to see pt dressing changed pt can have iv out and inc to full liq diet
--- NOTE | 2020-06-30 16:20 | NUR ---
reposistioned pt to r side with pillows pt hallucinating at times but pleasant
--- NOTE | 2020-06-30 17:38 | NUR ---
pt eating full liq diet earlier had another liq bm still no blood noted
--- NOTE | 2020-07-01 06:40 | NUR ---
SHIFT SUMMARY POD3 COLOSTOMY TAKEDOWN, A/O X4, VSS, TOLERATING PO, PASSING FLATUS, MULTIPLE BM'S, INDEPENDENT IN ROOM AND HALLS, PAIN MANAGED PER EMAR, SMALL AMT OF DRAINAGE IN XAVIER (EMPTIED BY PATIENT). NO ACUTE EVENTS THIS SHIFT. CALL LIGHT IN REACH, WILL CONTINUE TO MONITOR AND REPORT TO ONCOMING DAY RN.
--- NOTE | 2020-07-01 18:08 | NUR ---
SHIFT SUMMARY PT IS TOLERATING A REGULAR DIET. PAIN MANAGED WITH PO PAIN MEDICATION. PT INDEPENDENT IN THE ROOM. HE IS MANAGING HIS XAVIER DRAIN. DRESSINGS CHANGED TODAY. PT IN GOOD SPIRITS. POSSIBLE DC HOME TOMORROW. VSS. WILL MONITOR UNTIL REPORT TO CHANDLER CHUNG.
--- NOTE | 2020-07-01 18:14 | NUR ---
SHIFT SUMMARY PT IS WIDE AWAKE, POD 3 AFTER REMOVAL OF COLOSTOMY.A&OX4 , WALKS INDEPENDENTLY.PT EMPIED HIS XAVIER BY HIMSELF.PT HAS MIDLINE RONALDO DRESSING .PT HAD A NEW DRESSING CHANGE TODAY. HAS A ABDOMINAL BINDER FOR COMFORT .PT TOLERATED REGULAR DIET WITH NO N/V .PT HAD A BOWEL MOVEMENT TODAY, WITH SOME VISIBLE BLOOD.PT REPORTS NO PAIN AT THE MOMENT .PT VSS. THIS STUDENT NURSE WILL CONTINUE TO MONITOR AND GIVE REPORT TO CHANDLER ARREDONDO.
--- NOTE | 2020-07-02 06:06 | NUR ---
SHIFT SUMMARY POD4 COLOSTOMY TAKEDOWN, A/O X4, VSS, TOLERATING PO, DENIES PAIN SINCE 07/01 DAY SHIFT START, AMBULATING INDEPENDENTLY, VOIDING INDEPENDENTLY, REGULAR BM'S. NO ACUTE EVENTS THIS SHIFT, PLAN TO DC HOME TODAY. CALL LIGHT IN REACH, WILL CONTINUE TO MONITOR AND REPORT TO ONCOMING DAY RN.
--- NOTE | 2020-07-02 15:39 | NUR ---
DISCHARGE PT PROVIDED WITH WRITTEN AND VERBAL DISCHARGE INSTRUCTIONS, HE REPORTED UNDERSTANDING. PT PROVIDED WITH MEDIPORE DRESSINGS FOR DRESSING CHANGES. PT WAS ABLE TO AMBULATE OUT WITHOUT ASSISTANCE. PT DISCHARGED AT 1541.
== END 2020-07-02 15:43 | disposition home or self-care (01) | DRG 334 ==
LOC: SURS 06:07 → PRE IP 07:30 → SURS 15:43
PROVIDERS: Anesthesiology; ADMIT Surgery
PROC: 0DSM0ZZ Reposition Descending Colon, Open Approach (ICD-10-PCS; 2020-06-28)
PROC: 0DNW0ZZ Release Peritoneum, Open Approach (ICD-10-PCS; 2020-06-28)
PROC: 0DBP0ZZ Excision of Rectum, Open Approach (ICD-10-PCS; principal; 2020-06-28 07:30)
DX: Z43.3 Encounter for attention to colostomy (principal); K66.0 Peritoneal adhesions (postprocedural) (postinfection); E66.01 Morbid (severe) obesity due to excess calories; E11.9 Type 2 diabetes mellitus without complications; F41.9 Anxiety disorder, unspecified; F32.9 Major depressive disorder, single episode, unspecified; E78.5 Hyperlipidemia, unspecified; Z87.891 Personal history of nicotine dependence; Z90.49 Acquired absence of other specified parts of digestive tract; Z98.890 Other specified postprocedural states; Z79.899 Other long term (current) drug therapy; Z88.0 Allergy status to penicillin; Z88.6 Allergy status to analgesic agent
CPT/HCPCS: 36415; 80048; 82947; 85025; 86850; 86900; 86901; A9270; A9270-GY; J1100; J1650; J1956; J2250; J2405; J2704; J3010; J7120

== ENCOUNTER 2022-08-15 15:12 | Inpatient (IN) | payer OTHER ==
[~2022-08-15] VITALS: Ht 177.8 cm; Wt 79.5 kg
[2022-08-15 16:08] LABS: BASOPHILS ABSOLUTE AUTO 0.05 K/mm3 (0.00-0.23); BASOPHILS PERCENT AUTO 1 % (0-2); EOSINOPHILS ABSOLUTE AUTO 0.13 K/mm3 (0.00-0.68); EOSINOPHILS PERCENT AUTO 2 % (0-6); Hemoglobin 11.9 g/dL (13.5-17.5); IMMATURE GRAN ABSOLUTE AUTO 0.09 K/mm3 (0.00-0.10); IMMATURE GRAN PERCENT AUTO 1 % (0-1); LYMPHOCYTES ABSOLUTE AUTO 1.15 K/mm3 (0.84-5.20); LYMPHOCYTES PERCENT AUTO 14 % (21-46); MONOCYTES ABSOLUTE AUTO 0.88 K/mm3 (0.16-1.47); MONOCYTES PERCENT AUTO 11 % (4-13); Mean Corpuscular HGB 35.5 pg (26.0-34.0); Mean Corpuscular Volume 102 fL (80-100); Mean Platelet Volume 9.6 fL (9.1-12.4); NEUTROPHILS ABSOLUTE AUTO 5.96 K/mm3 (1.96-9.15); NEUTROPHILS PERCENT AUTO 72 % (41-73); Platelet Count 281 K/mm3 (150-400); RDW Coefficient Variation 15.3 % (11.7-14.2); RDW Standard Deviation 56.6 fL (35.1-46.3); Red Blood Cell Count 3.35 M/mm3 (4.30-5.90); White Blood Cell Count 8.26 K/mm3 (4.00-11.30)
[2022-08-15 16:20] LABS: Albumin, Blood 1.9 g/dL (3.4-5.0); Albumin/Globulin Ratio 0.4 (0.8-1.8); Bilirubin, Total 9.3 mg/dL (0.1-1.0); Bun/Creatinine Ratio 7.7 (12.0-20.0); Calcium, Blood 8.3 mg/dL (8.5-10.1); Creatinine, Blood 0.52 mg/dL (0.60-1.20); Potassium, Blood 3.3 mmol/L (3.5-5.5); Total Protein, Blood 6.9 g/dL (6.4-8.2)
[2022-08-15 22:31] LABS: International Normalized Ratio 1.22; Prothrombin Time Results 12.7 Sec (9.7-11.5)
[2022-08-16 00:33] VITALS: BP 118/73
[2022-08-16] MEDS ORDERED: LISINOPRIL2.5 MG PO (00:36)
[2022-08-16] MEDS ORDERED: MULVITA PO (00:37)
[2022-08-16 02:49] VITALS: BP 105/71
[2022-08-16 05:22] LABS: BASOPHILS ABSOLUTE AUTO 0.06 K/mm3 (0.00-0.23); BASOPHILS PERCENT AUTO 1 % (0-2); EOSINOPHILS ABSOLUTE AUTO 0.26 K/mm3 (0.00-0.68); EOSINOPHILS PERCENT AUTO 4 % (0-6); Hemoglobin 10.8 g/dL (13.5-17.5); IMMATURE GRAN PERCENT AUTO 1 % (0-1); LYMPHOCYTES ABSOLUTE AUTO 1.25 K/mm3 (0.84-5.20); LYMPHOCYTES PERCENT AUTO 17 % (21-46); MONOCYTES ABSOLUTE AUTO 1.03 K/mm3 (0.16-1.47); MONOCYTES PERCENT AUTO 14 % (4-13); Mean Corpuscular HGB 36.2 pg (26.0-34.0); Mean Corpuscular Volume 101 fL (80-100); Mean Platelet Volume 9.5 fL (9.1-12.4); NEUTROPHILS PERCENT AUTO 63 % (41-73); Platelet Count 252 K/mm3 (150-400); RDW Coefficient Variation 15.4 % (11.7-14.2); RDW Standard Deviation 56.8 fL (35.1-46.3); Red Blood Cell Count 2.98 M/mm3 (4.30-5.90)
--- NOTE | 2022-08-16 05:33 | NUR ---
SHIFT SUMMARY PT WAS NEWLY ADMITTED THIS SHIFT AND HAS A GI CONSULT W/ DR. ROSALES TODAY. HE IS A&OX4, IND IN THE ROOM, AND CALLS APPROPRIATELY. THE PT HAS BEEN WANTING TO GET REST SINCE HE HAS BEEN AT THE HOSPITAL CONSISTENTLY SINCE HIS BIOPSY YESTERDAY MORNING. IN THE ED HE WAS HAVING SOFT BP S, BUT THEY HAVE BEGAN TO STABILIZE. HE IS A DAILY DRINKER AND HIS CIWA S HAVE BEEN ZERO TONIGHT. HE STATES TWO WEEKS AGO HE DROPPED HIS ALCOHOL CONSUMPTION TO ONE 24 OUNCE CAN OF BEER A DAY. SEIZURE PRECAUTIONS IN PLACE, NO ACUTE EVENTS OVER NIGHT, BED IN LOW, AND HIS CALL LIGHT IN REACH. SEE NOTES FOR ANY UPDATES.
[2022-08-16 05:47] LABS: Albumin, Blood 1.8 g/dL (3.4-5.0); Albumin/Globulin Ratio 0.4 (0.8-1.8); Bilirubin, Total 8.3 mg/dL (0.1-1.0); Bun/Creatinine Ratio 8.6 (12.0-20.0); Calcium, Blood 8.4 mg/dL (8.5-10.1); Creatinine, Blood 0.46 mg/dL (0.60-1.20); Globulin, Blood 4.4 g/dL (2.2-4.0); Potassium, Blood 3.9 mmol/L (3.5-5.5); Total Protein, Blood 6.2 g/dL (6.4-8.2)
[2022-08-16 07:43] VITALS: BP 105/78
--- NOTE | 2022-08-16 16:01 | NUR ---
SHIFT SUMMARY MR MOFFETT HAS BEEN NPO TODAY, IN MRI NOW THEN CAN EAT AND DRINK AFTER COMPLETION. NO C/O PAIN. UP INDEPENDENTLY WITH STEADY GAIT. CIWAS 0. SZ PADS IN PLACE. JAUNDICED. ORIENTATED TO SELF, PLACE AND DATE, APPROPRIATE CONVERSATION. BED LOW, CALL LIGHT IN REACH.
[2022-08-16 16:21] VITALS: BP 123/91
[2022-08-16 19:33] VITALS: BP 119/85
--- NOTE | 2022-08-17 04:55 | NUR ---
SHIFT SUMMARY: PT A&O X4. PT PLEASANT AND COOPERATIVE WITH CARE. PT REFUSED BOWEL MEDS. PT JAUNDICED THROUGHOUT. LIVER MRI COMPLETED PRIOR DAY SHIFT. RESULTS IN ELECTRONIC CHART. PT STATES PER DR. ROSALES, PT IS ABLE TO D/C TODAY. WILL PASS ON TO DAY SHIFT. PT INDEPENDENT IN ROOM. CIWA PERFORMED THIS SHIFT RESULTING IN 0. CALL LIGHT IN REACH. BED IN LOWEST POSITION. WILL CONTINUE TO MONITOR.
[2022-08-17 05:21] VITALS: BP 116/71
[2022-08-17 05:43] LABS: Hematocrit 32.8 % (37.0-53.0); Hemoglobin 11.3 g/dL (13.5-17.5); Mean Corpuscular HGB 35.4 pg (26.0-34.0); Mean Corpuscular HGB Conc 34.5 g/dL (31.5-36.5); Mean Corpuscular Volume 103 fL (80-100); Mean Platelet Volume 9.6 fL (9.1-12.4); Platelet Count 283 K/mm3 (150-400); RDW Coefficient Variation 15.2 % (11.7-14.2); Red Blood Cell Count 3.19 M/mm3 (4.30-5.90); White Blood Cell Count 6.81 K/mm3 (4.00-11.30)
[2022-08-17 06:05] LABS: Albumin, Blood 1.8 g/dL (3.4-5.0); Albumin/Globulin Ratio 0.4 (0.8-1.8); Bun/Creatinine Ratio 12.1 (12.0-20.0); Calcium, Blood 8.5 mg/dL (8.5-10.1); Creatinine, Blood 0.5 mg/dL (0.60-1.20); Globulin, Blood 4.6 g/dL (2.2-4.0); Potassium, Blood 3.7 mmol/L (3.5-5.5); Total Protein, Blood 6.4 g/dL (6.4-8.2)
[2022-08-17 07:06] VITALS: BP 107/80
--- NOTE | 2022-08-17 07:06 | NUR ---
PATIENT CONSENT STATEMENT. 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
--- NOTE | 2022-08-17 10:41 | NUR ---
1037 DISCHARGED TO HOME ACCOMPANIED BY BROTHER. PT ALERT, AMBULATORY. REESE PO FOOD AND FLUIDS. DISCUSSED FOLLOW UP CARE WITH PT. DISCHARGE INSTRUCTIONS REVIEWED AND PATIENT PROVIDED WITH COPY. PT IN AGREEMENT WITH PLAN TO DISCHARGE HOME
== END 2022-08-17 10:41 | disposition home or self-care (01) | DRG 433 ==
LOC: ER 15:12 → MEDS 15:13 → ENPENDDIS 08-17 10:02 → MEDS 08-17 10:41
PROVIDERS: Emergency Medicine; Family Medicine; Internal Medicine; Student in an Organized Health Care Education/Training Program; ADMIT Internal Medicine
DX: K70.10 Alcoholic hepatitis without ascites (principal); E87.1 Hypo-osmolality and hyponatremia; K76.0 Fatty (change of) liver, not elsewhere classified; E11.9 Type 2 diabetes mellitus without complications; E87.6 Hypokalemia; R74.01 Elevation of levels of liver transaminase levels; D53.9 Nutritional anemia, unspecified; E78.5 Hyperlipidemia, unspecified; F10.20 Alcohol dependence, uncomplicated; F41.9 Anxiety disorder, unspecified; F32.A Depression, unspecified; Z90.49 Acquired absence of other specified parts of digestive tract; F17.210 Nicotine dependence, cigarettes, uncomplicated; Z98.890 Other specified postprocedural states; Z88.0 Allergy status to penicillin; Z88.6 Allergy status to analgesic agent; Z79.899 Other long term (current) drug therapy
CPT/HCPCS: 36415; 74183; 80053; 82947; 85025; 85027; 85610; 85730; 99284-25; A9270; A9581; G0378; J7120

== ENCOUNTER 2023-11-12 10:42 | Day surgery (SDC) | payer OTHER ==
[~2023-11-12] VITALS: Ht 177.8 cm; Wt 71.9 kg
[~2023-11-12 10:42] MED LIST changes: +LISINOPRIL2.5 MG PO; +Lactated Ringer's 1,000 ML IV ONE; +Lidocaine 2% 5 ML SDV ONE; +Lidocaine HCl/Pf 1% 5 ML VIAL ONE; +MULVITA PO; +propofoL 50 ML IV ONE
[2023-11-12] MEDS ORDERED: Lactated Ringer's 1,000 ML IV ONE (11:39)
[2023-11-12 12:24] VITALS: BP 130/87
== END 2023-11-12 12:38 | disposition home or self-care (01) ==
LOC: ORSCSDS 10:42
PROVIDERS: Internal Medicine Gastroenterology
PROC: 0DJ08ZZ Inspection of Upper Intestinal Tract, Via Natural or Artificial Opening Endoscopic (ICD-10-PCS; principal; 2023-11-12 12:15)
DX: K74.60 Unspecified cirrhosis of liver (principal); Z13.810 Encounter for screening for upper gastrointestinal disorder; E11.42 Type 2 diabetes mellitus with diabetic polyneuropathy; F32.A Depression, unspecified; F41.9 Anxiety disorder, unspecified; E78.5 Hyperlipidemia, unspecified; Z79.899 Other long term (current) drug therapy
CPT/HCPCS: 82947; J2001; J2704; J7120